=== PATIENT | male | born 1955 | race Caucasian/White ===

== ENCOUNTER → 2016-08-07 07:41 | Outpatient (CLI) | payer OTHER ==
[~2016-08-07 07:41] MED LIST: ASPIRIN325 MG PO; GLUCOTROL 5 MG T5 MG PO; NEURONTIN 300300 MG PO; NORVASC5 MG PO; OMEPRAZOLE20 M1 PO; PRINIVIL20 MG PO; PROAIR HFA8.5 GM INH; RESTORIL15 MG PO; SPIRIVA18 MCG INH; SYMBICORT 16010.2 GM INH; TENORMIN50 MG PO; ZANAFLEX4 MG PO; [UNRECOGNIZED DRUG - OTHER] EACH EYE
[2016-08-20 09:02] VITALS: BMI 21.5
== END | disposition home or self-care (01) ==
LOC: D.RT 07:41
DX: J84.9 Interstitial pulmonary disease, unspecified (principal); R59.0 Localized enlarged lymph nodes

== ENCOUNTER 2016-08-20 06:48 | Outpatient (CLI) | payer OTHER ==
[~2016-08-20] VITALS: Ht 170.2 cm; Wt 62.3 kg
[2016-08-20 07:50] LABS: BASOPHILS 0.3 % (0.0-2.0); HEMOGLOBIN 12.5 g/dL (13.5-17.5); IMMATURE GRANULOCYTES 0.1 % (0-5); LYMPHOCYTES 20.4 % (15-50); MCH 29.7 pg (26.0-34.0); MCHC 32.1 g/dL (31.0-37.0); MCV 92.6 fL (80.0-100.0); MEAN PLATELET VOLUME 9.7 fL (7.4-10.4); MONOCYTES 10.6 % (2-11); NEUTROPHILS 63.6 % (40-80); PLATELET COUNT 280 10x3/uL (130-400); RBC 4.21 10x6/uL (4.20-6.10); RDW 13.8 % (11.5-14.5); WBC 9.1 10x3/uL (4.8-10.8)
[2016-08-20 08:08] LABS: ANION GAP 13.7 mmol/L (8-16); CALCIUM 9.6 mg/dL (8.5-10.1); CARBON DIOXIDE 30.2 mmol/L (21.0-32.0); CREATININE - SERUM 1.1 mg/dL (0.6-1.3); POTASSIUM - SERUM 3.9 mmol/L (3.5-5.1)
[2016-08-20 08:21] LABS: INR 1.02 (0.85-1.17); PROTIME 13.2 SECONDS (11.6-15.0)
[2016-08-20 08:22] LABS: APTT 34.7 SECONDS (22.8-39.4)
[2016-08-20] MEDS ORDERED: PROAIR HFA8.5 GM INH (08:43)
[2016-08-20] MEDS ORDERED: NORVASC5 MG PO (08:44)
[2016-08-20] MEDS ORDERED: ASPIRIN325 MG PO (08:45)
[2016-08-20] MEDS ORDERED: NEURONTIN 300300 MG PO (08:48)
[2016-08-20] MEDS ORDERED: OMEPRAZOLE20 M1 PO (08:49)
[2016-08-20] MEDS ORDERED: PRINIVIL20 MG PO (08:49)
[2016-08-20] MEDS ORDERED: SPIRIVA18 MCG INH (08:50)
[2016-08-20] MEDS ORDERED: RESTORIL15 MG PO (08:50)
[2016-08-20] MEDS ORDERED: SYMBICORT 16010.2 GM INH (08:50)
[2016-08-20] MEDS ORDERED: ZANAFLEX4 MG PO (08:51)
[2016-08-20] MEDS ORDERED: TENORMIN50 MG PO (08:51)
[2016-08-20] MEDS ORDERED: [UNRECOGNIZED DRUG - OTHER] EACH EYE (08:52)
[2016-08-20 09:02] VITALS: BP 126/73; Ht 170.2 cm; Wt 62.3 kg
[2016-08-20] MEDS ORDERED: GLUCOTROL 5 MG T5 MG PO (09:05)
--- NOTE | 2016-08-20 20:21 | NUR ---
1210 SERVED AHA FINGERFOOD DIET. EATING WTIHOUT PROBLEMS. Ramirez DEL CID R.N.
--- NOTE | 2016-08-20 20:22 | NUR ---
1230 PORTABLE CHEST XRAY DONE. Ramirez DEL CID R.N.
--- NOTE | 2016-08-20 20:23 | NUR ---
1500 [facility]. ROUNDS BY Shelley LEACH R.N./[facility]. Ramirez DEL CID R.N. 1515 REPORT RECEIVED 1230 CHEST XRAY CLEAR NO PNEUMOTHORAX. Ramirez DEL CID R.N. 1545 IV DC'ED WITH CATH INTACT. PT STATES VOIDED EARLIER. Ramirez DEL CID R.N. 1635 PT GIVEN D/C INSTRUCTIONS INCLUDING: D/C INSTRUCTIONS FOR CT GUIDED BIOPSY, MED REC., & D/C INSTRUCTIONS PT & VOICED UNDERSTANDING. TO PRIVATE CAR PER WHEELCHAIR BY Ramirez GUILLORY R.N. HOME WITH MRS. SHEN. Ramirez DEL CID R.N.
== END 2016-08-20 16:35 | disposition home or self-care (01) ==
LOC: D.OPS 06:48 → D.CT 09:00 → D.OPS 16:35
PROVIDERS: Specialist
DX: R91.8 Other nonspecific abnormal finding of lung field (principal); R63.4 Abnormal weight loss

== ENCOUNTER 2016-08-29 12:00 | Emergency (ER) | payer OTHER ==
[2016-08-20 09:02] VITALS: BMI 21.5
[2016-08-29 14:12] LABS: HEMOGLOBIN 12.4 g/dL (13.5-17.5); MCH 30.1 pg (26.0-34.0); MCHC 33.5 g/dL (31.0-37.0); MCV 89.8 fL (80.0-100.0); MEAN PLATELET VOLUME 10.9 fL (7.4-10.4); PLATELET COUNT 447 10x3/uL (130-400); RBC 4.12 10x6/uL (4.20-6.10); RDW 13.9 % (11.5-14.5); WBC 25.9 10x3/uL (4.8-10.8)
[2016-08-29 14:27] LABS: APPEARANCE HAZY (CLEAR); BACTERIA FEW /hpf (NONE SEEN); BILIRUBIN NEGATIVE (NEGATIVE); COLOR YELLOW (YELLOW); EPITHELIAL CELLS OCC /hpf (0-5); GLUCOSE 250 mg/dL (NEGATIVE); KETONE NEGATIVE (NEGATIVE); LEUKOCYTE ESTERASE TRACE (NEGATIVE); NITRITE NEGATIVE (NEGATIVE); PROTEIN TRACE mg/dL (NEGATIVE); RED CELLS - URINE RARE /hpf (0-5); SPECIFIC GRAVITY 1.015 (1.005-1.020); UROBILINOGEN NORMAL (NORMAL); WHITE CELLS - URINE OCC /hpf (0-5)
[2016-08-29 14:28] LABS: MUCUS >1+ /lpf (NONE SEEN)
[2016-08-29 14:51] LABS: EOSINOPHILS 3 % (0-7); LYMPHOCYTES 10 % (15-50); MONOCYTES 4 % (2-11); NEUTROPHILS 83 % (40-80); PLATELET ESTIMATE NORMAL
[2016-08-29 15:28] LABS: ALBUMIN 2.7 g/dL (3.4-5.0); ANION GAP 13.4 mmol/L (8-16); BILIRUBIN - TOTAL 0.53 mg/dL (0.2-1.3); CALCIUM 8.9 mg/dL (8.5-10.1); CARBON DIOXIDE 26.3 mmol/L (21.0-32.0); CREATININE - SERUM 1.5 mg/dL (0.6-1.3); POTASSIUM - SERUM 4.7 mmol/L (3.5-5.1); PROTEIN - SERUM 7.2 g/dL (6.4-8.2)
== END 2016-08-29 17:10 | disposition short-term general hospital (02) ==
LOC: D.ER 12:00
PROVIDERS: Emergency Medicine
DX: R50.9 Fever, unspecified (principal); J18.9 Pneumonia, unspecified organism; E11.9 Type 2 diabetes mellitus without complications; I10 Essential (primary) hypertension